=== PATIENT | female | born 1930 | race Caucasian/White ===

== ENCOUNTER 2018-12-10 14:37 | Emergency (ER) | payer MEDICARE ==
[2018-12-10 14:43] VITALS: TEMP 98.1
[2018-12-10] MEDS ORDERED: DIPH,PERTUS(ACELL)TETVAC-LF 0.5 ML VIAL IM ONE (14:55)
[2018-12-10] MEDS ORDERED: LIDOCAINE 1% INJ 10MG/ML (20 ML MDV) SQ ONE (14:56)
--- NOTE | 2018-12-10 15:47 | XR ---
EXAMINATION TYPE: XR humerus RT DATE OF EXAM: 12/10/2018 COMPARISON: NONE HISTORY: Pain TECHNIQUE: 2 views submitted. FINDINGS: The osseous structures are intact and the joint spaces are preserved. 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 Sclerotic cortical based lesion involving the proximal humerus. IMPRESSION: 1. No acute fracture or dislocation. 2. Sclerotic cortical based lesion involving the mid diaphysis of the humerus most likely benign but could be correlated with bone scan for confirmation as clinically warranted. 3. Right shoulder arthropathy.
--- NOTE | 2018-12-10 16:41 | ED ---
General Adult HPI - General Chief complaint: Wound/Laceration Stated complaint: Fall, leg & arm laceration Time Seen by Provider: 12/10/18 14:44 Source: patient, family, RN notes reviewed Mode of arrival: wheelchair Limitations: no limitations - History of Present Illness Initial comments: 88-year-old female presents to the emergency department for a chief complaint of laceration to the right arm. Patient was in her closet reaching for something when she tripped and fell as she was not using her walker. Patient initially went to urgent care for laceration of the leg and Steri-Strips were applied. However they felt that the arm skin tear needed sutures so sent her to the emergency department for evaluation. Patient denies any difficulty moving her arm or hand. States tetanus is not up-to-date.Patient has no other complaints at this time including shortness of breath, chest pain, abdominal pain, nausea or vomiting, headache, or visual changes. - Related Data Allergies Allergy/AdvReac Type Severity Reaction Status Date / Time No Known Allergies Allergy Verified 12/10/18 14:43 Review of Systems ROS Statement: Those systems with pertinent positive or pertinent negative responses have been documented in the HPI. ROS Other: All systems not noted in ROS Statement are negative. Past Medical History Past Medical History: CVA/TIA, Hypertension History of Any Multi-Drug Resistant Organisms: None Reported Past Surgical History: Appendectomy Past Psychological History: No Psychological Hx Reported Smoking Status: Never smoker Past Alcohol Use History: Rare Past Drug Use History: None Reported General Exam Limitations: no limitations General appearance: alert, in no apparent distress Head exam: Present: atraumatic, normocephalic, normal inspection Eye exam: Present: normal appearance, PERRL, EOMI. Absent: scleral icterus, conjunctival injection, periorbital swelling ENT exam: Present: normal exam, normal oropharynx, mucous membranes moist, TM's normal bilaterally, normal external ear exam Neck exam: Present: normal inspection, full ROM. Absent: tenderness, meningismus, lymphadenopathy Respiratory exam: Present: normal lung sounds bilaterally. Absent: respiratory distress, wheezes, rales, rhonchi, stridor, chest wall tenderness (No chest wall tenderness) Cardiovascular Exam: Present: regular rate, normal rhythm, normal heart sounds. Absent: systolic murmur, diastolic murmur, rubs, gallop, clicks GI/Abdominal exam: Present: soft, normal bowel sounds, other (No ecchymosis). Absent: distended, tenderness (No tenderness), guarding, rebound, rigid Extremities exam: Present: full ROM (Full range of motion of the right arm and shoulder.), normal capillary refill (Capillary refill less than, radial pulse 2+ in the right upper extremity.), other (Patient has a 7 cm laceration/skin tear noted to the right mid upper arm. No evidence for muscle injury or tendon injury.) Back exam: Absent: CVA tenderness (R), CVA tenderness (L), vertebral tenderness (No thoracic or lumbar spine tenderness) Course Vital Signs 12/10/18 14:39 Temperature 98.1 F Pulse Rate 67 Respiratory 20 Rate Blood Pressure 135/69 O2 Sat by Pulse 98 Oximetry Procedures - Laceration Laceration #1 Consent Obtained: verbal consent Indication: laceration Site: upper extremity Size (cm): 7 Description: linear Depth: simple, single layer Anesthetic Used: lidocaine 1% Anesthesia Technique: local infiltration Amount (mls): 6 Pre-repair: wound explored, irrigated extensively, deep structures intact Type of Sutures: other (Ethilon) Size of Sutures: 4-0 Number of Sutures: 11 Technique: simple, interrupted Patient Tolerated Procedure: well, no complications Medical Decision Making - Medical Decision Making 88-year-old female presents for skin tear to the right arm. Patient had a trip and fall in her closet. She denies hitting her head. She denies being on blood thinners. Patient has full range motion of the right arm and right hand. Laceration is about 6 cm. There is no evidence for muscle injury or tendon involvement. This was cleaned thoroughly with saline pressure irrigation. 11 sutures were applied to approximate the wound. I felt this would be more beneficial than using Steri-Strips given gaping of wound. She was also obtained which showed no fracture or dislocation. However there was an incidental finding of sclerotic cortical-based lesion involving the mid diaphysis of the humerus which is most likely benign but could be correlated with bone scan for confirmation. I did discuss this with patient as well as family member at bedside who agrees to follow up with primary care. They were also given orthopedic follow-up if needed. Discussed having sutures removed in 7-10 days. Discussed monitoring for signs of infection. Discussed returning if she notices any other signs of infection or other injuries. Disposition Clinical Impression: Laceration Disposition: HOME SELF-CARE Condition: Good Instructions (If sedation given, give patient instructions): Care For Your Stitches (ED), Laceration (ED) Additional Instructions: Keep the area clean. Have sutures removed in 7-10 days. Return to the emergency department if you have any worsening symptoms. Is patient prescribed a controlled substance at d/c from ED?: No Referrals: Shweta Greer DO [Primary Care Provider] - 1-2 days Time of Disposition: 16:37
[2018-12-10 16:53] VITALS: BP 130/70; PULSE 65; RESP 16
== END 2018-12-10 16:44 | disposition home or self-care (01) ==
LOC: EC 14:37
DX: S41.111A Laceration without foreign body of right upper arm, initial encounter (principal); Z23 Encounter for immunization; Z86.73 Personal history of transient ischemic attack (TIA), and cerebral infarction without residual deficits; W01.0XXA Fall on same level from slipping, tripping and stumbling without subsequent striking against object, initial encounter
CPT/HCPCS: 73060; 90715; 99283; 12002; 90471; J2001